=== PATIENT | male | born 1955 | race Caucasian/White ===

== ENCOUNTER 2018-09-27 09:31 | Day surgery (SDC) | payer OTHER ==
[~2018-09-27] VITALS: Ht 182.9 cm; Wt 108.6 kg
[~2018-09-27 09:31] MED LIST: OLAN10TA3 PO; SODIUM CHLORIDE 0.9% 1,000 ML IV ONE
[2018-09-27] MEDS ORDERED: SODIUM CHLORIDE 0.9% 1,000 ML IV ONE (09:43)
[2018-09-27] MEDS ORDERED: CLOZ100 PO (10:58)
[2018-09-27] MEDS ORDERED: ATOR20TA86 PO (10:58)
[2018-09-27] MEDS ORDERED: VENL-67 PO (10:58)
[2018-09-27] MEDS ORDERED: LEVO50 PO (10:58)
[2018-09-27] MEDS ORDERED: OXYGEN THERAPY IH SCH (20:00)
== END 2018-09-27 12:45 | disposition home or self-care (01) ==
LOC: SURGERY 09:31
PROVIDERS: ATTEND Specialist
DX: K20.9 Esophagitis, unspecified (principal); K31.89 Other diseases of stomach and duodenum; K29.50 Unspecified chronic gastritis without bleeding; B18.2 Chronic viral hepatitis C; K46.0 Unspecified abdominal hernia with obstruction, without gangrene; E78.00 Pure hypercholesterolemia, unspecified; E03.9 Hypothyroidism, unspecified; F25.9 Schizoaffective disorder, unspecified; Z72.89 Other problems related to lifestyle
CPT/HCPCS: 43239; 88305; 88312; 88313; C1769; J7030

== ENCOUNTER 2019-12-12 09:48 | Day surgery (SDC) | payer OTHER ==
[~2019-12-12] VITALS: Ht 182.9 cm; Wt 113.6 kg
[~2019-12-12 09:48] MED LIST changes: +ATOR20TA86 PO; +CLOZ100T32 PO; +LEVO50 PO; -OLAN10TA3 PO; +OMEP20 PO; -SODIUM CHLORIDE 0.9% 1,000 ML IV ONE; +SODIUM CHLORIDE 0.9% 1,000 ML ONE; +VENL-67 PO
[2019-12-12] MEDS ORDERED: SODIUM CHLORIDE 0.9% 500 ML IV ONE (10:00)
[2019-12-12] MEDS ORDERED: METF-960 PO (10:43)
[2019-12-12] MEDS ORDERED: BUPR150SR PO (10:43)
[2019-12-12 12:06] LABS: GLUCOMETER DEV NAME(LOC) SDS.; GLUCOSE,POINT OF CARE 132 MG/DL (70-110)
[2019-12-12] MEDS ORDERED: SODIUM CHLORIDE 0.9% 1,000 ML IV ONE (12:30)
[2019-12-12] MEDS ORDERED: OXYGEN THERAPY IH SCH (20:00)
== END 2019-12-12 14:35 | disposition home or self-care (01) ==
LOC: SURGERY 09:48
PROVIDERS: ATTEND Specialist
DX: K21.9 Gastro-esophageal reflux disease without esophagitis (principal); K29.50 Unspecified chronic gastritis without bleeding; K31.89 Other diseases of stomach and duodenum; K74.60 Unspecified cirrhosis of liver; E03.9 Hypothyroidism, unspecified; F20.9 Schizophrenia, unspecified; Z86.19 Personal history of other infectious and parasitic diseases; Z11.59 Encounter for screening for other viral diseases; Z79.899 Other long term (current) drug therapy
CPT/HCPCS: 43239; 82962; 87635; 88305; 88312; 88313; 93005; J7030